=== PATIENT | male | born 1990 | race Caucasian/White ===

== ENCOUNTER 2019-06-20 10:52 | Emergency (ER) | payer OTHER ==
[~2019-06-20] VITALS: Ht 175.3 cm; Wt 65.8 kg
[2019-06-20] MEDS ORDERED: VENTOLIN HFA 1818 GM INH (11:58)
[2019-06-20] MEDS ORDERED: MEDROL DOSPAK21 TA1 PO (11:58)
[2019-06-20 12:04] VITALS: BP 130/68
== END 2019-06-20 12:03 | disposition home or self-care (01) ==
LOC: M.ERS 10:52
DX: J45.901 Unspecified asthma with (acute) exacerbation (principal)